=== PATIENT | female | born 1995 | race American Indian/Alaskan Native ===

== ENCOUNTER 2018-03-05 14:35 | Inpatient (IN) | payer MEDICAID ==
[2018-03-05 14:49] VITALS: O2SAT 98
--- NOTE | 2018-03-05 15:02 | C.PDOC ---
History Of Present Illness 22 y/o F presents with suicidal ideations, feeling depressed. Medically cleared at transferring institution (Home). Denies fever, chest pain, or dyspnea. Time Seen by Provider: 03/05/18 14:38 Chief Complaint (Nursing): Psychiatric Evaluation Past Medical History Vital Signs: Last Vital Signs Temp 98.6 F 03/05/18 14:38 Pulse 103 H 03/05/18 14:38 Resp 18 03/05/18 14:38 BP 105/72 03/05/18 14:38 Pulse Ox 98 03/05/18 14:38 Family History: States: No Known Family Hx - Social History Hx Alcohol Use: No Hx Substance Use: Yes - Immunization History Hx Tetanus Toxoid Vaccination: No Hx Influenza Vaccination: No Hx Pneumococcal Vaccination: No Review Of Systems Except As Marked, All Systems Reviewed And Found Negative. Constitutional: Negative for: Fever Respiratory: Negative for: Shortness of Breath Physical Exam - Physical Exam Appears: No Acute Distress Skin: Normal Color Head: Normacephalic Oral Mucosa: Moist Respiratory: No Accessory Muscle Use Extremity: No Swelling Neurological/Psych: Other (alert) ED Course And Treatment O2 Sat by Pulse Oximetry: 98 Disposition - Disposition Disposition: HOSPITALIZED Disposition Time: 15:02 Condition: GUARDED - Clinical Impression Clinical Impression: Depression, Anxiety
[2018-03-05] MEDS ORDERED: Albuterol HFA 90 mcg/actuation (8 g) INH PRN (19:09)
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
--- NOTE | 2018-03-06 15:50 | PCM.BM ---
<Pedro Mcdaniel - Last Filed: 03/06/18 15:47> Treatment Plan Problems - Problems identified on initial assessmt Depression Date Initiated: 03/05/18 Time Initiated: 18:55 Assessment reference: NA Treatment assets and liabiliti Patient Assests: cooperative, educated, self-reliant, ADL independent, negotiates basic needs, cognitively intact Patient Liabilities: physical pain (Stage 4 breast cancer), substance abuse (hx of alcohol and prescription abuse), medical problems (Breast cancer) - Milieu Protocol Maintain good personal hygiene: daily Encourage regular showers, daily Remind patient to perform daily oral care, every shift Assist patient to perform ADL's Conduct patient checks and document Observation sheet: Q15 minutes (For safety) Maintain personal safety: every shift Educate patient to report safety concerns to staff, every shift Monitor environment for contraband/sharps Medication safety: Monitor for expected outcome, potential side effects: every shift, Assess barriers to learning: every shift, Assess readiness for medication education: every shift Milieu Narrative: Lexapro, Remeron for depression and anxiety disorders Gabapentin for anxiety and pain Dilaudid as needed for As need medications All risks, benefits and alternatives of the meds discussed, and the pt agreed and understood. Attend groups and activities Individual therapy daily Psychoeducation and support daily Encourage compliance with meds and after care Refer to outpatient program Teach healthy lifestyle methods, i.e. diet, exercise, meditation Smoking cessation and patch if needed 44 min Discharge/Continuing Care - Treatment Team Participation Patient/Family/SO Statement: Lexapro, Remeron for depression and anxiety disorders Gabapentin for anxiety and pain Dilaudid as needed for As need medications All risks, benefits and alternatives of the meds discussed, and the pt agreed and understood. Attend groups and activities Individual therapy daily Psychoeducation and support daily Encourage compliance with meds and after care Refer to outpatient program Teach healthy lifestyle methods, i.e. diet, exercise, meditation Smoking cessation and patch if needed 44 min <Shantelle Bazzi - Last Filed: 03/06/18 19:41> - Diagnosis (1) Depression Status: Acute Interventions: 03/06/18 19:41 * Assess/adjust medications daily and /or as needed * See patient on an individual basis 7x/week to assess symptoms of depression * Monitor for side effects & effectiveness of medications * <Trinity Rodriguez - Last Filed: 03/07/18 09:24> Family Contact Family involvement: Family/SO is involved Family contact: Patient declines to allow family contact at present - Goals for Treatment Patient goals for treatment: Patient signed out AMA([facility] Medical Advice) Discharge/Continuing Care - Education Needs Education Needs: Patient Medication, Patient Diagnosis/Disease Process, Patient Coping Skills, Patient Placement options, Patient Community resources - Discharge Discharge Criteria: Free of Suicidal thoughts, Ability to care for self, Reduction of target symptoms Discharge to:: Home, With Family - Treatment Team Participation Discussed with Family/SO: No Was Patient/Family/SO present at Treatment Team Meeting: No (Patient signed out AMA([facility] Medical Advice))
[2018-03-07 06:32] VITALS: BP 104/69; PULSE 96; RESP 18; TEMP 98.9
--- NOTE | 2018-03-07 08:09 | PCM.PYCHPN ---
Psychiatric Progress Note - Psychiatric Progress Note Patient Chief Complaint: "Im having a tough time" Medication Change: Yes Medical Record Reviewed: Yes Mental Status Examination - Cognitive Function Orientation: Person, Place, Situation, Time - Mood Mood: Depressed, Anxious - Affect Affect: Constricted - Formal Thought Process Formal Thought Process: No Impairment Goal/Treatment Plan - Goal/Treatment Plan Progress Toward Problem(s) and Goals/Treatment Plan: Lexapro, Remeron for depression and anxiety disorders Gabapentin for anxiety and pain Dilaudid as needed for As need medications All risks, benefits and alternatives of the meds discussed, and the pt agreed and understood. Attend groups and activities Individual therapy daily Psychoeducation and support daily Encourage compliance with meds and after care Refer to outpatient program Teach healthy lifestyle methods, i.e. diet, exercise, meditation Smoking cessation and patch if needed 44 min
[2018-03-07] MEDS ORDERED: Influenza Vaccine 60 MCG/0.5 ML SYR (3 yr & up) IM ONE (10:00)
[2018-03-07] MEDS ORDERED: Pneumococcal 23-Valent Vaccine IM ONE (10:00)
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
== END 2018-03-07 15:49 | disposition left against medical advice (07) | DRG 430 ==
LOC: C.ER 14:35 → C.5E 15:00
PROVIDERS: ADMIT Psychiatry & Neurology Psychiatry; ATTEND Psychiatry & Neurology Psychiatry
PROC: GZHZZZZ Group Psychotherapy (ICD-10-PCS; principal; 2018-03-05)
PROC: HZ52ZZZ Individual Psychotherapy for Substance Abuse Treatment, Cognitive-Behavioral (ICD-10-PCS; 2018-03-05)
PROC: HZ59ZZZ Individual Psychotherapy for Substance Abuse Treatment, Supportive (ICD-10-PCS; 2018-03-05)
PROC: HZ56ZZZ Individual Psychotherapy for Substance Abuse Treatment, Psychoeducation (ICD-10-PCS; 2018-03-05)
DX: F33.3 Major depressive disorder, recurrent, severe with psychotic symptoms (principal); F12.20 Cannabis dependence, uncomplicated; F43.10 Post-traumatic stress disorder, unspecified; Z62.810 Personal history of physical and sexual abuse in childhood; F41.1 Generalized anxiety disorder; F41.0 Panic disorder [episodic paroxysmal anxiety]; R45.851 Suicidal ideations; C50.919 Malignant neoplasm of unspecified site of unspecified female breast; Z91.5 Personal history of self-harm